=== PATIENT | female | born 1955 | race Caucasian/White ===

== ENCOUNTER 2023-10-05 14:35 | Outpatient (CLI) | payer MEDICARE, MEDICAID | END 2023-10-05 23:59 | disposition home or self-care (01) | LOC: RAD 14:35 | PROVIDERS: ATTEND Physician Assistant Surgical | DX: M47.816 Spondylosis without myelopathy or radiculopathy, lumbar region (principal); M51.37 Other intervertebral disc degeneration, lumbosacral region; M54.50 Low back pain, unspecified; F41.9 Anxiety disorder, unspecified | CPT/HCPCS: 73700 ==